=== PATIENT | male | born 1980 | race Caucasian/White ===

== ENCOUNTER 2017-12-12 22:28 | Emergency (ER) | payer OTHER ==
[~2017-12-12] VITALS: Ht 180.3 cm; Wt 115.0 kg
[2017-12-12 22:47] LABS: BASOPHILS # (AUTO) 0.07 x10^3/uL (0-0.1); BASOPHILS % (AUTO) 1 % (0-1); EOSINOPHILS # (AUTO) 0.14 x10^3/uL (0-0.4); EOSINOPHILS % (AUTO) 1 % (1-7); LYMPHOCYTES # (AUTO) 2.15 x10^3/uL (1-3.4); LYMPHOCYTES % (AUTO) 20 % (22-44); MD NO; MEAN CORPUSCULAR HEMOGLOBIN 29.6 pg (27.5-34.5); MEAN CORPUSCULAR HGB CONC 33.4 g/dL (33.2-36.2); MEAN CORPUSCULAR VOLUME 88.5 fL (81-97); MONOCYTES # (AUTO) 0.53 x10^3/uL (0.2-0.8); MONOCYTES % (AUTO) 5 % (2-9); NEUTROPHILS # (AUTO) 7.92 x10^3/uL (1.8-6.8); NEUTROPHILS % (AUTO) 73 % (42-75); PLATELET COUNT 308 x10^3/uL (130-400); RED BLOOD COUNT 5.31 x10^6/uL (4.38-5.82); RED CELL DISTRIBUTION WIDTH 16.8 % (9.4-14.8)
[2017-12-12 22:57] LABS: ANION GAP 14 mmol/L (5-15); CALCIUM 8.5 mg/dL (8.5-10.1); CHLORIDE 107 mmol/L (98-107); SALICYLATE LEVEL 3.4 mg/dL (2.8-20.0)
[2017-12-12 23:00] LABS: ALANINE AMINOTRANSFERASE 45 U/L (12-78); ALKALINE PHOSPHATASE 93 U/L (45-117); BILIRUBIN,TOTAL 0.3 mg/dL (0.2-1.0); CREATININE 1.14 mg/dL (0.7-1.3); TOTAL PROTEIN 7.6 g/dL (6.4-8.2)
[2017-12-12 23:13] LABS: ACETAMINOPHEN < 2 mcg/mL (10-30)
[2017-12-13 01:31] LABS: AMPHETAMINE SCREEN, URINE Positive (Negative); BARBITURATE SCREEN, URINE Negative (Negative); BENZODIAZEPINE SCREEN, URINE Negative (Negative); CANNABINOID SCREEN, URINE Positive (Negative); COCAINE SCREEN, URINE Negative (Negative); METHADONE SCREEN, URINE Negative (Negative); OPIATE SCREEN, URINE Negative (Negative)
[2017-12-13 09:13] VITALS: BP 137/84
== END 2017-12-13 11:11 | disposition home or self-care (01) ==
LOC: ED 23:27
DX: R45.851 Suicidal ideations (principal); F10.10 Alcohol abuse, uncomplicated
CPT/HCPCS: 36415; 80053; 80307; 80329; 85025; 99284; G0480

== ENCOUNTER 2020-01-26 06:08 | Day surgery (SDC) | payer OTHER, MEDICAID ==
[2020-01-24 14:35] LABS: BASOPHILS % (AUTO) 1 % (0-1); EOSINOPHILS % (AUTO) 3 % (1-7); LYMPHOCYTES % (AUTO) 29 % (22-44); MEAN CORPUSCULAR HEMOGLOBIN 29.3 pg (27.5-34.5); MEAN CORPUSCULAR HGB CONC 33.7 g/dL (33.2-36.2); MEAN PLATELET VOLUME 8.3 fL (7.4-10.4); MONOCYTES % (AUTO) 9 % (2-9); NEUTROPHILS % (AUTO) 58 % (42-75); PLATELET COUNT 275 x10^3/uL (130-400); RED CELL DISTRIBUTION WIDTH 14.5 % (9.4-14.8)
[2020-01-24 14:37] LABS: MD NO
[2020-01-24 14:41] LABS: ANION GAP 2 mmol/L (5-15); CALCIUM 8.9 mg/dL (8.5-10.1); CHLORIDE 109 mmol/L (98-107); CREATININE 0.98 mg/dL (0.7-1.3)
[2020-01-24 15:38] LABS: HCT (SEDRATE) 44.4 % (39.2-51.8)
[2020-01-24 15:45] LABS: INTERNATIONAL NORMALIZED RATIO 1.01 (0.93-1.1); PROTHROMBIN TIME 10.7 Seconds (9.6-11.5)
[~2020-01-26] VITALS: Ht 193 cm; Wt 148.7 kg
[2020-01-26 06:23] VITALS: BP 137/88
[2020-01-26] MEDS ORDERED: LACTATED RINGERS 1,000 ML IV SCH (06:30)
[2020-01-26] MEDS ORDERED: PLEASE ENTER HEIGHT AND WEIGHT MC SCH (06:30)
[2020-01-26] MEDS ORDERED: CHLORHEXIDINE 15 ML UDC MM ONE (06:30)
[2020-01-26] MEDS ORDERED: VANCOMYCIN PMX 1GM/200ML 200 ML IV ONE (06:30)
[2020-01-26] MEDS ORDERED: TRAM50TA2 PO (06:36)
[2020-01-26] MEDS ORDERED: MELO7.5T31 PO (06:36)
[2020-01-26] MEDS ORDERED: TRANEXAMIC ACID 100 MG/ML, 10ML ONE (06:59)
[2020-01-26] MEDS ORDERED: BUPIVACAINE/PF 0.5% ONE (06:59)
[2020-01-26] MEDS ORDERED: EPINEPHRINE 1 MG/ML, 1ML ONE (07:00)
[2020-01-26] MEDS ORDERED: BACITRACIN 50,000 UNIT ONE (07:00)
[2020-01-26] MEDS ORDERED: VANCOMYCIN 1,000 MG ONE (07:00)
[2020-01-26] MEDS ORDERED: THROMBIN 20,000 UNIT VIAL TP ONE (07:01)
[2020-01-26] MEDS ORDERED: LIDOCAINE/PF 1%, 30ML ONE (07:42)
[2020-01-26] MEDS ORDERED: LIDOCAINE 1%, 20ML ONE (07:42)
[2020-01-26] MEDS ORDERED: LABETALOL 5MG/ML, 20ML ONE (07:42)
[2020-01-26] MEDS ORDERED: MAGNESIUM SULFATE 1 GM/2 ML ONE (07:42)
[2020-01-26] MEDS ORDERED: FENTANYL PF 250 MCG/5ML ONE (07:46)
[2020-01-26] MEDS ORDERED: PROPOFOL 10 MG/ML, 20ML ONE (07:46)
[2020-01-26] MEDS ORDERED: GLYCOPYRROLATE 0.2MG/1ML, 5ML ONE (07:46)
[2020-01-26] MEDS ORDERED: MIDAZOLAM 1 MG/ML, 5ML ONE (07:46)
[2020-01-26] MEDS ORDERED: LIDOCAINE-MPF 2% ,5ML ONE (07:46)
[2020-01-26] MEDS ORDERED: ROCURONIUM 10MG/ML,5ML ONE (07:46)
[2020-01-26] MEDS ORDERED: DEXAMETHASONE 4 MG/ML, 5ML ONE (07:46)
[2020-01-26] MEDS ORDERED: PROMETHAZINE 25 MG/ML, 1ML IM PRN (08:00)
[2020-01-26] MEDS ORDERED: HYDROcodone/APAP 7.5-325MG/15ML UDC PO PRN (08:00)
[2020-01-26] MEDS ORDERED: HALOPERIDOL 5 MG/ML IV PRN (08:00)
[2020-01-26] MEDS ORDERED: EPHEDRINE 50 MG/ML, 1ML IM PRN (08:00)
[2020-01-26] MEDS ORDERED: OXYcodone 5 MG/5 ML ORAL.SOL UDC PO PRN ×2 (08:00)
[2020-01-26] MEDS ORDERED: MIDAZOLAM 1 MG/ML, 2ML IV PRN (08:00)
[2020-01-26] MEDS ORDERED: DIPHENHYDRAMINE 50 MG/ML, 1ML IVPush PRN (08:00)
[2020-01-26] MEDS ORDERED: hydrALAzine 20 MG/ML, 1ML IV PRN (08:00)
[2020-01-26] MEDS ORDERED: LORazepam 2 MG/ML, 1ML IVPush PRN (08:00)
[2020-01-26] MEDS ORDERED: morphine SULFATE 10 MG/ML, 1ML IVPush PRN (08:00)
[2020-01-26] MEDS ORDERED: ONDANSETRON 2MG/ML, 2ML IVPush PRN ×2 (08:00)
[2020-01-26] MEDS ORDERED: ACETAMINOPHEN 325 MG TABLET PO PRN ×2 (08:00)
[2020-01-26] MEDS ORDERED: HYDROmorphone 1 MG/ML, 1ML INJ IVPush PRN (08:00)
[2020-01-26] MEDS ORDERED: EPHEDRINE 50 MG/ML, 1ML IVPush PRN (08:00)
[2020-01-26] MEDS ORDERED: HYDROmorphone 1 MG/ML, 1ML INJ IM PRN (08:00)
[2020-01-26] MEDS ORDERED: LABETALOL 5MG/ML, 20ML IV PRN (08:00)
[2020-01-26] MEDS ORDERED: KETOROLAC 30 MG/1 ML IVPush SCH (08:00)
[2020-01-26] MEDS ORDERED: METOCLOPRAMIDE 5 MG/ML, 2ML IVPush PRN (08:00)
[2020-01-26] MEDS ORDERED: ALBUTEROL/IPRATROPIUM 2.5MG/0.5MG, 3 ML NPPB PRN (08:00)
[2020-01-26] MEDS ORDERED: DIAZEPAM 5 MG/ML, 2ML IVPush PRN (08:00)
[2020-01-26] MEDS ORDERED: METHOCARBAMOL 1,000 MG in DEXTROSE 5% 100 ML IV PRN (08:00)
[2020-01-26] MEDS ORDERED: CEFAZOLIN 1,000 MG ONE (08:01)
[2020-01-26] MEDS ORDERED: OXYcodone 5 MG/5 ML ORAL.SOL UDC ONE (10:28)
[2020-01-26] MEDS ORDERED: FENTANYL PF 100 MCG/2ML ONE (10:28)
[2020-01-26] MEDS ORDERED: MEPERIDINE/PF 25MG/ML,1ML ONE (10:28)
[2020-01-26] MEDS ORDERED: ACETAMINOPHEN 650 MG/20.3 ML UDC ONE (10:45)
[2020-01-26] MEDS: FENTANYL PF 100 MCG/2ML IV PRN ×2 (10:54→11:05)
== END 2020-01-26 12:30 | disposition home or self-care (01) ==
LOC: OUT 06:08
PROVIDERS: ATTEND Orthopaedic Surgery Orthopaedic Surgery of the Spine
DX: M51.17 Intervertebral disc disorders with radiculopathy, lumbosacral region (principal); M48.061 Spinal stenosis, lumbar region without neurogenic claudication; F17.210 Nicotine dependence, cigarettes, uncomplicated; E66.9 Obesity, unspecified; Z68.39 Body mass index [BMI] 39.0-39.9, adult; Z79.2 Long term (current) use of antibiotics; Z79.899 Other long term (current) drug therapy; Z90.49 Acquired absence of other specified parts of digestive tract; Z98.890 Other specified postprocedural states; Z20.828 Contact with and (suspected) exposure to other viral communicable diseases
CPT/HCPCS: 36415; 63056; 71046; 72100; 80048; 83036; 85025; 85610; 85651; 85730; 93005; 95938; 95941; C1760; J0171; J0690; J1100; J2250; J2704; J3010; J3370; J3475; J7120; U0003